=== PATIENT | female | born 1950 | race Caucasian/White ===

== ENCOUNTER 2020-06-21 11:35 | Emergency (ER) | payer OTHER | END 2020-06-21 14:18 | disposition home or self-care (01) | LOC: FER 11:35 | DX: S93.401A Sprain of unspecified ligament of right ankle, initial encounter (principal); E11.9 Type 2 diabetes mellitus without complications; I10 Essential (primary) hypertension; Z79.84 Long term (current) use of oral hypoglycemic drugs; Z79.899 Other long term (current) drug therapy; W19.XXXA Unspecified fall, initial encounter; Y92.009 Unspecified place in unspecified non-institutional (private) residence as the place of occurrence of the external cause | CPT/HCPCS: 73630 ==

== ENCOUNTER 2021-10-17 09:22 | Emergency (ER) | payer OTHER ==
[2021-10-17 10:55] LABS: BASOPHIL 0.8 % (0-2); EOSINOPHIL 3.2 % (0-7); HCT 40.1 % (37.0-47.0); LYMPHOCYTE 34.7 % (15-48); MCH 28.6 pg (25.0-31.0); MCHC 32.4 g/dL (32.0-36.0); MCV 88.1 fL (78.0-100.0); MONOCYTE 7.3 % (0-12); MPV 9.1 fL (6.0-9.5); NEUTROPHIL 53.6 % (41-80); NRBC 0; PLT 349 K/uL (150-400); RBC 4.55 M/uL (4.20-5.40); RDW 13.5 % (11.5-14.0); WBC 7.9 K/uL (4.0-10.5)
[2021-10-17 11:20] LABS: INR 1.04 (0.9-1.2); PTT 26.6 SECONDS (24.4-34.7)
[2021-10-17 11:21] LABS: ALBUMIN 3.7 g/dL (3.4-5.0); BILIRUBIN - TOTAL 0.3 mg/dL (0.2-1.0); GLOBULIN (CALCULATION) 3.6 g/dL; POTASSIUM 4.3 mmol/L (3.5-5.1); TOTAL PROTEIN 7.3 g/dL (6.4-8.2)
== END 2021-10-17 12:22 | disposition left against medical advice (07) ==
LOC: FER 09:22
PROVIDERS: Emergency Medicine
DX: R07.89 Other chest pain (principal); I10 Essential (primary) hypertension; E66.9 Obesity, unspecified; I69.998 Other sequelae following unspecified cerebrovascular disease; H02.401 Unspecified ptosis of right eyelid; Z53.29 Procedure and treatment not carried out because of patient's decision for other reasons
CPT/HCPCS: 36415; 71045; 80053; 84484; 85025; 85610; 85730; 93005